=== PATIENT | female | born 1995 | race Caucasian/White ===

== ENCOUNTER 2016-07-18 16:26 | Outpatient (CLI) | payer OTHER ==
[~2016-07-18 16:26] MED LIST: AMOXICILLIN875 MG PO; BENTYL10 MG PO; COLACE100 MG PO; FLEXERIL5 MG PO; IBUPROFEN600 MG PO; MOTRIN800 MG PO; VENTOLIN HFA18 GM IH; ZOFRAN ODT4 MG PO
[2016-07-18 16:51] VITALS: BP 135/79
[2016-07-18 17:37] VITALS: BP 118/72
[2016-07-18 17:57] LABS: EOSINOPHIL (%) 0.8 % (0-5); EOSINOPHIL COUNT 0.1 K/uL (0-0.3); HEMATOCRIT 35.9 % (36.0-46.0); IMMATURE GRANULOCYTE (%) 0.3 % (0.0-0.7); INSTRUMENT ABS NEUTROPHIL CT 7.1 K/uL; MCH 26.8 PG (29.0-34.0); MCHC 33.4 G/DL (30.0-36.0); MCV 80.1 FL (83-99); MEAN PLAT.VOLUME 11.2 uM^3 (9.5-12.4); MONOCYTE COUNT 0.4 K/uL (0-0.8); NEUTROPHIL (%) 73.7 % (45-76); NEUTROPHIL COUNT 7.1 K/uL (1.8-6.4); PLATELET COUNT 228 K/uL (156-360); RBC DIS.WIDTH-SD 36.9 % (39-53); RED BLOOD COUNT 4.48 M/uL (3.80-5.20); WHITE BLOOD COUNT 9.6 K/uL (4.1-10.2)
[2016-07-18 19:22] VITALS: BP 110/71
[2016-07-19 01:37] VITALS: BP 105/77
[2016-07-19 05:46] VITALS: BP 109/77
[2016-07-19 06:51] VITALS: BP 118/74
[2016-07-19 10:29] LABS: Estimated Average Glucose 105 mg/dL (70-123); HEMOGLOBIN A1c (GLYCOHEMOGLOB) 5.3 % HGB (Below 5.7)
== END 2016-07-19 12:37 | disposition home or self-care (01) ==
LOC: LDRP-OP → 2WEST 16:28 → LDRP-OP 07-19 07:17 → 2WEST 07-19 12:37 → LDRP-OP 08-13 15:33
PROVIDERS: Advanced Practice Midwife
PROC: 10S0XZZ Reposition Products of Conception, External Approach (ICD-10-PCS; principal; 2016-07-19)
DX: O32.9XX0 Maternal care for malpresentation of fetus, unspecified, not applicable or unspecified (principal); Z3A.37 37 weeks gestation of pregnancy
CPT/HCPCS: 59025; 83036; 85025; G0378; J3105; J7120

== ENCOUNTER 2016-08-02 20:19 | Inpatient (IN) | payer OTHER ==
[~2016-08-02] VITALS: Ht 157.5 cm; Wt 90.3 kg
[2016-08-02 20:33] VITALS: BP 131/84
[2016-08-02] MEDS ORDERED: PRENATAL TABLE1 EAC3 PO (22:03)
[2016-08-02 22:04] LABS: EOSINOPHIL (%) 1.1 % (0-5); EOSINOPHIL COUNT 0.1 K/uL (0-0.3); HEMATOCRIT 36.4 % (36.0-46.0); IMMATURE GRANULOCYTE (%) 0.4 % (0.0-0.7); LYMPHOCYTE COUNT 2.5 K/uL (1.0-2.8); MCH 26.8 PG (29.0-34.0); MCHC 33.5 G/DL (30.0-36.0); MCV 79.8 FL (83-99); MEAN PLAT.VOLUME 11.5 uM^3 (9.5-12.4); MONOCYTE (%) 5.3 % (3-12); MONOCYTE COUNT 0.5 K/uL (0-0.8); NEUTROPHIL (%) 68.7 % (45-76); PLATELET COUNT 229 K/uL (156-360); RBC DIS.WIDTH-SD 36.9 % (39-53); RED BLOOD COUNT 4.56 M/uL (3.80-5.20); WHITE BLOOD COUNT 10.1 K/uL (4.1-10.2)
[2016-08-02 22:25] VITALS: BP 115/71
[2016-08-02 23:55] VITALS: BP 143/99
[2016-08-02 23:57] VITALS: BP 126/80
[2016-08-03] VITALS (11 sets, daily range): BP systolic 106–142; BP diastolic 69–93
[2016-08-03 14:21] LABS: POINT-OF-CARE METER ID UU13113692
[2016-08-04 07:39] LABS: EOSINOPHIL (%) 1.1 % (0-5); EOSINOPHIL COUNT 0.2 K/uL (0-0.3); HEMATOCRIT 29.9 % (36.0-46.0); IMMATURE GRANULOCYTE (%) 0.7 % (0.0-0.7); IMMATURE GRANULOCYTE COUNT 0.1 K/uL; INSTRUMENT ABS NEUTROPHIL CT 10.2 K/uL; LYMPHOCYTE COUNT 2.2 K/uL (1.0-2.8); MCH 26.9 PG (29.0-34.0); MCHC 33.1 G/DL (30.0-36.0); MCV 81.3 FL (83-99); MEAN PLAT.VOLUME 11.3 uM^3 (9.5-12.4); MONOCYTE (%) 5.5 % (3-12); MONOCYTE COUNT 0.7 K/uL (0-0.8); NEUTROPHIL COUNT 10.2 K/uL (1.8-6.4); PLATELET COUNT 180 K/uL (156-360); RBC DIS.WIDTH-CV 13.2 % (11.8-14.6); RBC DIS.WIDTH-SD 38.7 % (39-53); RED BLOOD COUNT 3.68 M/uL (3.80-5.20)
[2016-08-04 07:41] LABS: WHITE BLOOD COUNT 13.5 K/uL (4.1-10.2)
[2016-08-04 07:42] VITALS: BP 124/95
[2016-08-04] MEDS ORDERED: IBUPROFEN800 MG PO (12:24)
[2016-08-04] MEDS ORDERED: FERROCITE324 MG PO (12:25)
[2016-08-04 15:29] VITALS: BP 117/74
[2016-08-04 22:32] VITALS: BP 127/78
== END 2016-08-05 14:00 | disposition home or self-care (01) | DRG 775 ==
LOC: LDRP-OP 20:19 → 2WEST 20:22 → LDRP-OP 08-13 14:04
PROVIDERS: Advanced Practice Midwife; Obstetrics & Gynecology
PROC: 10907ZC Drainage of Amniotic Fluid, Therapeutic from Products of Conception, Via Natural or Artificial Opening (ICD-10-PCS; principal; 2016-08-02)
PROC: 0UQMXZZ Repair Vulva, External Approach (ICD-10-PCS; 2016-08-02)
PROC: 10E0XZZ Delivery of Products of Conception, External Approach (ICD-10-PCS; 2016-08-03)
DX: O63.0 Prolonged first stage (of labor) (principal); O99.02 Anemia complicating childbirth; Z3A.39 39 weeks gestation of pregnancy; D62 Acute posthemorrhagic anemia; O76 Abnormality in fetal heart rate and rhythm complicating labor and delivery; Z37.0 Single live birth; O70.0 First degree perineal laceration during delivery; J45.909 Unspecified asthma, uncomplicated; K21.9 Gastro-esophageal reflux disease without esophagitis; G43.709 Chronic migraine without aura, not intractable, without status migrainosus; E66.9 Obesity, unspecified; Z68.36 Body mass index [BMI] 36.0-36.9, adult; Q83.8 Other congenital malformations of breast
CPT/HCPCS: 82948; 85025; G0378; J0595; J7120; Q0169

== ENCOUNTER 2017-03-01 23:24 | Emergency (ER) | payer OTHER ==
[~2017-03-01] VITALS: Ht 157.5 cm; Wt 87.9 kg
[~2017-03-01 23:24] MED LIST changes: +FERROCITE324 MG PO; +IBUPROFEN800 MG PO; +PRENATAL TABLE1 EAC3 PO
[2017-03-01 23:26] VITALS: BP 153/89
[2017-03-02 01:27] LABS: MCH 27.9 PG (29.0-34.0); MCV 79.6 FL (83-99); MEAN PLAT.VOLUME 10.3 uM^3 (9.5-12.4); PLATELET COUNT 201 K/uL (156-360); RBC DIS.WIDTH-CV 13.3 % (11.8-14.6); RBC DIS.WIDTH-SD 37.3 % (39-53); RED BLOOD COUNT 4.27 M/uL (3.80-5.20)
[2017-03-02 01:35] LABS: CHLORIDE 105 mEq/L (99-109); POTASSIUM 3.7 mEq/L (3.7-5.4); SODIUM 135 mEq/L (136-147)
[2017-03-02 01:37] LABS: GLUCOSE 90 mg/dL (70-99)
[2017-03-02 01:39] LABS: ANION GAP 10 MEQ/L (2-14)
[2017-03-02 01:41] LABS: GFR ESTIMATE (CALCULATED) > 59 mL/min/
[2017-03-02 01:42] LABS: UREA NITROGEN (BUN) 5 mg/dL (9-23)
[2017-03-02] MEDS ORDERED: PROVENTIL HFA6.7 GM IH (02:46)
[2017-03-02] MEDS ORDERED: MEDROL DOSEPAK4 MG PO (02:46)
[2017-03-02] MEDS ORDERED: ROBITUSSIN100 MG/5 M PO (02:46)
== END 2017-03-02 03:04 | disposition home or self-care (01) ==
LOC: EME 23:24
PROVIDERS: Emergency Medicine
DX: O99.512 Diseases of the respiratory system complicating pregnancy, second trimester (principal); J06.9 Acute upper respiratory infection, unspecified; O98.512 Other viral diseases complicating pregnancy, second trimester; B34.9 Viral infection, unspecified; Z3A.19 19 weeks gestation of pregnancy; J45.909 Unspecified asthma, uncomplicated; Z88.1 Allergy status to other antibiotic agents
CPT/HCPCS: 71020; 80048; 81003; 85027; 87502; 99281; 99285

== ENCOUNTER 2017-04-07 20:59 | Outpatient (CLI) | payer OTHER ==
[~2017-04-07 20:59] MED LIST changes: +MEDROL DOSEPAK4 MG PO; +PROVENTIL HFA6.7 GM IH; +ROBITUSSIN100 MG/5 M PO
[2017-04-07 21:15] VITALS: BP 116/73
[2017-04-07 22:03] LABS: SOURCE SWAB
[2017-04-07 22:13] LABS: APPEARANCE CLOUDY ((CLEAR)); BILIRUBIN NEGATIVE; BLOOD MODERATE; COLOR YELLOW ((YELLOW)); GLUCOSE (STRIP) NEGATIVE; KETONES 20; LEUKOCYTES LARGE; NITRITE NEGATIVE; PROTEIN (STRIP) NEGATIVE; SPECIFIC GRAVITY 1.018 (1.000-1.030); UROBILINOGEN 0.2 MG/DL (0.2-1.0)
[2017-04-07 22:33] LABS: WHITE BLOOD CELLS 30-40 /HPF (0-5)
[2017-04-07 22:34] LABS: EPITHELIAL CELLS 3+ /HPF
[2017-04-07 22:35] LABS: BACTERIA 2+ /HPF; MUCUS 1+ /LPF; UCUL ADDED? YES
[2017-04-07 22:38] LABS: AMPHETAMINE NEGATIVE (500 ng/mL); BARBITURATES NEGATIVE (200 ng/mL); BENZODIAZEPINES NEGATIVE (150 ng/mL); BUPRENORPHINE NEGATIVE (10 ng/mL); COCAINE NEGATIVE (150 ng/mL); METHADONE NEGATIVE (200 ng/mL); METHAMPHETAMINE NEGATIVE (500 ng/mL); OPIATES (MORPHINE) NEGATIVE (100 ng/mL); OXYCODONE NEGATIVE (100 ng/mL); PHENCYCLIDINE NEGATIVE (25 ng/mL); PROPOXYPHENE NEGATIVE (300 ng/mL); THC CANNABINOIDS NEGATIVE (50 ng/mL); TRICYCLIC ANTIDEPRESSANTS NEGATIVE (300 ng/mL)
[2017-04-07 23:04] LABS: CANDIDA DNA PROBE POSITIVE; GARDNERELLA DNA PROBE NEGATIVE; TRICHOMONAS DNA PROBE NEGATIVE
== END 2017-04-07 23:33 | disposition home or self-care (01) ==
LOC: LDRP-OP 20:59 → 2WEST 21:01 → LDRP-OP 08-20 10:56
PROVIDERS: Advanced Practice Midwife
DX: O26.891 Other specified pregnancy related conditions, first trimester (principal); R10.9 Unspecified abdominal pain; Z3A.00 Weeks of gestation of pregnancy not specified; O36.8190 Decreased fetal movements, unspecified trimester, not applicable or unspecified
CPT/HCPCS: 59025; 81003; 87086; 87480; 87491; 87510; 87591; 87660; G0378

== ENCOUNTER 2017-07-19 09:59 | Inpatient (IN) | payer OTHER ==
[2017-07-19] VITALS (13 sets, daily range): BP systolic 110–147; BP diastolic 61–86
[~2017-07-19] VITALS: Ht 160 cm; Wt 89.7 kg
[2017-07-19 12:11] LABS: BASOPHIL (%) 0.3 % (0-1); EOSINOPHIL (%) 0.8 % (0-5); EOSINOPHIL COUNT 0.1 K/uL (0-0.3); HEMATOCRIT 31.2 % (36.0-46.0); HEMOGLOBIN 9.7 G/DL (11.9-15.5); IMMATURE GRANULOCYTE (%) 0.4 % (0.0-0.7); LYMPHOCYTE (%) 21.5 % (15-42); LYMPHOCYTE COUNT 1.6 K/uL (1.0-2.8); MCH 23.8 PG (29.0-34.0); MCHC 31.1 G/DL (30.0-36.0); MCV 76.7 FL (83-99); MONOCYTE (%) 4.4 % (3-12); MONOCYTE COUNT 0.3 K/uL (0-0.8); NEUTROPHIL (%) 72.6 % (45-76); NEUTROPHIL COUNT 5.5 K/uL (1.8-6.4); PLATELET COUNT 208 K/uL (156-360); RBC DIS.WIDTH-CV 13.6 % (11.8-14.6); RBC DIS.WIDTH-SD 37.8 % (39-53); RED BLOOD COUNT 4.07 M/uL (3.80-5.20); WHITE BLOOD COUNT 7.6 K/uL (4.1-10.2)
[2017-07-19 13:01] LABS: AMPHETAMINE NEGATIVE (500 ng/mL); BARBITURATES NEGATIVE (200 ng/mL); BENZODIAZEPINES NEGATIVE (150 ng/mL); BUPRENORPHINE NEGATIVE (10 ng/mL); COCAINE NEGATIVE (150 ng/mL); METHADONE NEGATIVE (200 ng/mL); METHAMPHETAMINE NEGATIVE (500 ng/mL); OPIATES (MORPHINE) NEGATIVE (100 ng/mL); OXYCODONE NEGATIVE (100 ng/mL); PHENCYCLIDINE NEGATIVE (25 ng/mL); PROPOXYPHENE NEGATIVE (300 ng/mL); THC CANNABINOIDS NEGATIVE (50 ng/mL); TRICYCLIC ANTIDEPRESSANTS NEGATIVE (300 ng/mL)
[2017-07-19 13:09] LABS: HEPATITIS B SURFACE ANTIGEN Nonreactive
[2017-07-19 13:10] LABS: HIV-1/2 AB/AG COMBO Nonreactive
[2017-07-19 14:00] LABS: TREPONEMA ANTIBODY NEGATIVE (NEGATIVE)
[2017-07-19 19:44] LABS: BASOPHIL (%) 0.2 % (0-1); EOSINOPHIL (%) 0.1 % (0-5); HEMATOCRIT 31.2 % (36.0-46.0); IMMATURE GRANULOCYTE (%) 0.4 % (0.0-0.7); LYMPHOCYTE (%) 7.7 % (15-42); LYMPHOCYTE COUNT 1.3 K/uL (1.0-2.8); MCH 24.4 PG (29.0-34.0); MCHC 32.1 G/DL (30.0-36.0); MCV 76.3 FL (83-99); MONOCYTE (%) 2.9 % (3-12); MONOCYTE COUNT 0.5 K/uL (0-0.8); NEUTROPHIL (%) 88.7 % (45-76); NEUTROPHIL COUNT 14.6 K/uL (1.8-6.4); PLATELET COUNT 209 K/uL (156-360); RBC DIS.WIDTH-CV 13.5 % (11.8-14.6); RBC DIS.WIDTH-SD 37.8 % (39-53); RED BLOOD COUNT 4.09 M/uL (3.80-5.20); WHITE BLOOD COUNT 16.5 K/uL (4.1-10.2)
[2017-07-20 07:04] LABS: BASOPHIL (%) 0.4 % (0-1); EOSINOPHIL (%) 0.6 % (0-5); EOSINOPHIL COUNT 0.1 K/uL (0-0.3); HEMATOCRIT 28.6 % (36.0-46.0); HEMOGLOBIN 9.1 G/DL (11.9-15.5); IMMATURE GRANULOCYTE (%) 0.3 % (0.0-0.7); LYMPHOCYTE (%) 17.2 % (15-42); LYMPHOCYTE COUNT 1.8 K/uL (1.0-2.8); MCH 24.3 PG (29.0-34.0); MCHC 31.8 G/DL (30.0-36.0); MCV 76.5 FL (83-99); MONOCYTE (%) 5.2 % (3-12); MONOCYTE COUNT 0.5 K/uL (0-0.8); NEUTROPHIL (%) 76.3 % (45-76); NEUTROPHIL COUNT 7.8 K/uL (1.8-6.4); PLATELET COUNT 192 K/uL (156-360); RBC DIS.WIDTH-CV 13.6 % (11.8-14.6); RBC DIS.WIDTH-SD 37.2 % (39-53); RED BLOOD COUNT 3.74 M/uL (3.80-5.20); WHITE BLOOD COUNT 10.2 K/uL (4.1-10.2)
[2017-07-21 07:10] VITALS: BP 122/82
[2017-07-21 13:36] LABS: HEMOGLOBIN A1c (GLYCOHEMOGLOB) 5.2 % (Below 5.7)
== END 2017-07-21 11:46 | disposition home or self-care (01) | DRG 775 ==
LOC: LDRP-OP → 2WEST 10:00 → LDRP-OP 08-20 03:03
PROVIDERS: Advanced Practice Midwife
DX: O70.0 First degree perineal laceration during delivery (principal); O36.8130 Decreased fetal movements, third trimester, not applicable or unspecified; O99.824 Streptococcus B carrier state complicating childbirth; O99.02 Anemia complicating childbirth; D50.9 Iron deficiency anemia, unspecified; O99.214 Obesity complicating childbirth; E66.9 Obesity, unspecified; Z68.32 Body mass index [BMI] 32.0-32.9, adult; Z3A.39 39 weeks gestation of pregnancy; Z37.0 Single live birth
CPT/HCPCS: 83036; 85025; 85025 91; 86762; 86780; 86850; 86900; 86901; 87340; 87389; J0595; J2540; J7120

== ENCOUNTER 2017-08-01 12:22 | Emergency (ER) | payer OTHER ==
[~2017-08-01] VITALS: Ht 160 cm; Wt 76.2 kg
[2017-08-01 13:00] VITALS: BP 119/66
== END 2017-08-01 15:14 | disposition home or self-care (01) ==
LOC: EME 12:22
DX: I80.8 Phlebitis and thrombophlebitis of other sites (principal); Z88.1 Allergy status to other antibiotic agents
CPT/HCPCS: 93971; 99281; 99285